=== PATIENT | male | born 1985 | race Caucasian/White ===

== ENCOUNTER 2016-06-01 17:08 | Emergency (ER) | payer OTHER ==
[~2016-06-01] VITALS: Ht 175.2 cm; Wt 72.6 kg
[~2016-06-01 17:08] MED LIST: ADVIL,MOTRIN,R200 MG PO; ALBUTEROL0.09 MG/A2 IH; AMOXICILLIN500 MG PO; AMOXIL500 MG PO; ANAPROX DS550 MG PO; ANUCORT-HC25 MG RC; ANUSOL HC30 GM PO; ANUSOL HC30 GM T; ANUSOL-HC25 MG R; ATARAX,VISTARIL50 MG PO; BACTRIM DS 8001 TA1 PO; BENADRYL ALLERG25 M5 PO; CARBIDOPA/LEVOD1 TA1 PO; CIPRO500 MG PO; CLARITIN-D 12 H1 TAB PO; CLARITIN10 MG PO; COLACE100 MG PO; CORTISPORIN SUS10 ML OT; DOCUSATE SODIU100 M2 PO; DOXYCYCLINE MO100 MG PO; HYDROCODONE BIT1 T11 PO; IBU800 M1 PO; LOMOTIL 0.025 M1 TAB PO; MIRTAZAPINE15 M2 PO; MOTRIN600 MG PO; MOTRIN800 MG PO; Motrin,Rufen800 MG PO; NORCO 10-325 T1 EACH PO; NORCO 5-325 TA1 EACH PO; PEN-VEE K500 MG PO; PERCOCET 325 MG1 TA2 PO; PHENERGAN W/DM120 ML PO; PHENERGAN25 M1 PO; PREDNISONE10 MG PO; PROCTOFOAM 1%10 GM PO; PROCTOFOAM-HC 11 FOA RC; PROCTOSOL-HC2.51 TP; PROVENTIL0.09 MG/AC IH; SEPTRA DS 800 M1 TAB PO; SOF-LAX100 MG PO; TRAMADOL HCL50 MG PO; TRAZADONE HYDR100 MG PO; TRIMOX500 MG PO; ULTRAM50 MG PO; VICODIN 5/500 505 MG PO; VOLTAREN50 M1 PO; XYLOCAINE JELLY30 GM T; ZITHROMAX Z PA250 MG PO; ZITHROMAX250 MG PO; ZOFRAN 4 MG ED2 TAB PO; ZOFRAN4 MG PO; ZYPREXA5 M1 PO
[2016-06-01] MEDS ORDERED: PREDNISONE10 MG PO (17:57)
[2016-06-01] MEDS ORDERED: CYCLOBENZAPRINE10 MG PO (18:06)
== END 2016-06-01 18:02 | disposition home or self-care (01) ==
LOC: ED 17:08
DX: M54.16 Radiculopathy, lumbar region (principal); F17.200 Nicotine dependence, unspecified, uncomplicated

== ENCOUNTER 2016-08-26 12:41 | Emergency (ER) | payer OTHER ==
[~2016-08-26] VITALS: Ht 175.2 cm; Wt 72.6 kg
[~2016-08-26 12:41] MED LIST changes: +CYCLOBENZAPRINE10 MG PO
[2016-08-26] MEDS ORDERED: NAPROSYN500 MG PO (12:48)
[2016-08-26] MEDS ORDERED: 'PARAFON FORTE500 M1 PO (12:48)
== END 2016-08-26 14:30 | disposition home or self-care (01) ==
LOC: ED 12:41
DX: M54.42 Lumbago with sciatica, left side (principal); R03.0 Elevated blood-pressure reading, without diagnosis of hypertension; F41.9 Anxiety disorder, unspecified; F31.9 Bipolar disorder, unspecified; F12.10 Cannabis abuse, uncomplicated; M48.06 Spinal stenosis, lumbar region; F17.200 Nicotine dependence, unspecified, uncomplicated; F14.10 Cocaine abuse, uncomplicated; Z90.89 Acquired absence of other organs; Z86.2 Personal history of diseases of the blood and blood-forming organs and certain disorders involving the immune mechanism

== ENCOUNTER → 2016-09-17 | Outpatient (CLI) | payer OTHER ==
[~2016-09-17] MED LIST changes: +'PARAFON FORTE500 M1 PO; +NAPROSYN500 MG PO
[2016-09-17 09:45] LABS: SEMEN ANALYSIS VOLUME 1.2 mL (2.0-5.0)
[2016-09-17 12:16] LABS: SPERM MORPHOLOGY NORMAL FORMS >30 % (NORM >30)
== END | disposition home or self-care (01) ==
LOC: LAB 01:16
PROVIDERS: Obstetrics & Gynecology Gynecologic Oncology
DX: N46.9 Male infertility, unspecified (principal)

== ENCOUNTER → 2017-07-09 | Outpatient (CLI) | payer BC ==
[2017-07-09 10:38] LABS: SEMEN ANALYSIS VOLUME 2.3 mL (2.0-5.0)
[2017-07-09 14:55] LABS: SPERM MORPHOLOGY NORMAL FORMS >30 % (NORM >30)
== END | disposition home or self-care (01) ==
LOC: LAB 01:37
PROVIDERS: Nurse Practitioner Family
DX: Z01.89 Encounter for other specified special examinations (principal)

== ENCOUNTER 2017-08-02 10:31 | Emergency (ER) | payer BC ==
[~2017-08-02] VITALS: Ht 182.8 cm; Wt 72.6 kg
[2017-08-02] MEDS ORDERED: CEPHALEXIN500 M1 PO (11:34)
== END 2017-08-02 11:41 | disposition home or self-care (01) ==
LOC: ED 10:31
DX: S61.212A Laceration without foreign body of right middle finger without damage to nail, initial encounter (principal); F17.200 Nicotine dependence, unspecified, uncomplicated; W25.XXXA Contact with sharp glass, initial encounter; Y93.89 Activity, other specified; Y92.89 Other specified places as the place of occurrence of the external cause; Y99.8 Other external cause status

== ENCOUNTER 2018-10-01 18:26 | Emergency (ER) | payer BC ==
[~2018-10-01] VITALS: Ht 175.2 cm; Wt 64.4 kg
[~2018-10-01 18:26] MED LIST changes: +CEPHALEXIN500 M1 PO
[2018-10-01] MEDS ORDERED: AUGMENTIN 875-875 MG PO (18:56)
== END 2018-10-01 19:01 | disposition home or self-care (01) ==
LOC: ED 18:26
DX: I88.9 Nonspecific lymphadenitis, unspecified (principal); F17.200 Nicotine dependence, unspecified, uncomplicated; Z79.2 Long term (current) use of antibiotics

== ENCOUNTER → 2020-05-07 | Outpatient (CLI) | payer OTHER ==
[~2020-05-07] MED LIST changes: +AUGMENTIN 875-875 MG PO
== END | disposition home or self-care (01) ==
LOC: COVID19 08:16
PROVIDERS: ATTEND Internal Medicine
DX: Z20.828 Contact with and (suspected) exposure to other viral communicable diseases (principal)

== ENCOUNTER 2022-10-22 10:21 | Emergency (ER) | payer OTHER ==
[~2022-10-22] VITALS: Ht 182.8 cm; Wt 74.8 kg
[2022-10-22] MEDS ORDERED: Motrin,Rufen800 MG PO (11:04)
== END 2022-10-22 11:08 | disposition home or self-care (01) ==
LOC: ED 10:21
DX: K64.9 Unspecified hemorrhoids (principal); F41.9 Anxiety disorder, unspecified; J45.909 Unspecified asthma, uncomplicated; F31.9 Bipolar disorder, unspecified; Z90.89 Acquired absence of other organs; Z98.890 Other specified postprocedural states; F17.200 Nicotine dependence, unspecified, uncomplicated